=== PATIENT | male | born 1950 | race Hispanic/Latino ===

== ENCOUNTER 2018-01-02 08:48 | Day surgery (SDC) | payer BC, OTHER ==
[2018-01-02 09:11] VITALS: O2SAT 100
[2018-01-02] MEDS ORDERED: Propofol 10 mg/ml Inj (20 ML) ONE (10:39)
[2018-01-02 11:37] VITALS: TEMP 96.8
[2018-01-02 12:06] VITALS: BP 121/71; PULSE 56; RESP 12
== END 2018-01-02 12:15 | disposition home or self-care (01) ==
LOC: C.ENDO 08:48
PROVIDERS: ATTEND Internal Medicine Gastroenterology
DX: Z12.11 Encounter for screening for malignant neoplasm of colon (principal); K63.5 Polyp of colon; D12.3 Benign neoplasm of transverse colon; K64.1 Second degree hemorrhoids
CPT/HCPCS: 45380; 88305; J2001; J2704